=== PATIENT | male | born 1955 | race Caucasian/White ===

== ENCOUNTER 2019-11-14 13:22 | Emergency (ER) | payer SELFPAY ==
[2019-11-14 13:37] VITALS: TEMP 97.6
--- NOTE | 2019-11-14 13:45 | ED.PDOC ---
History of Present Illness - General Chief Complaint: Neuro Symptoms/Deficits Stated Complaint: right arm numbness Time Seen by Provider: 11/14/19 13:24 Source: patient Exam Limitations: no limitations - History of Present Illness Initial Comments: 64-year-old male presents to the emergency department complaining of right arm weakness from the elbow down onset 5 days ago. The patient reports that he woke up on Tuesday morning and was unable to move his right arm from the elbow down. He denies any numbness or tingling. He denies any trauma. The patient reports that he does occasionally drink but does not recall any significant alcohol intake prior to this happening. He denies any other numbness, weakness or tingling. Pain is rated 0/10 in severity. Allergies/Adverse Reactions: Allergies NO KNOWN ALLERGY Allergy (Verified 11/14/19 13:38) Review of Systems - Review of Systems Constitutional: Denies: chills, fever EENTM: Denies: nose congestion, throat pain Respiratory: Denies: cough, short of breath Cardiology: Denies: chest pain, palpitations Gastrointestinal/Abdominal: Denies: abdominal pain, nausea, vomiting Musculoskeletal: Denies: joint pain, muscle pain, neck pain Skin: Denies: lesions, rash Neurological: States: weakness - R Arm from the elbow down.. Denies: headache, numbness, paresthesia Past Medical History (General) - Patient Medical History Hx Stroke: No Hx Congestive Heart Failure: No Hx Diabetes: No - Vaccination History Hx Influenza Vaccination: No Hx Pneumococcal Vaccination: No - Social History Hx Tobacco Use: Yes Family Medical History - Family History Father Family History: Unknown Living Status: Unknown Physical Exam - Physical Exam General Appearance: Alert, No apparent distress, Well Developed, Well Nourished Eye Exam: bilateral normal Ears, Nose, Throat: normal ENT inspection, normal pharynx Neck: non-tender, full range of motion, supple, normal inspection Respiratory: lungs clear, normal breath sounds, no respiratory distress Cardiovascular/Chest: normal peripheral pulses, regular rate, rhythm Peripheral Pulses: radial,right: 2+, radial,left: 2+, dorsalis pedis,right: 2+, dorsalis pedis,left: 2+ Gastrointestinal/Abdominal: normal bowel sounds, non tender, soft Extremity: non-tender, normal inspection Neurologic: overnight stocker II-XII nml as tested, alert, normal mood/affect, oriented x 3, motor weakness - R arm He is able to move the shoulder and upper arm without difficulty however 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 Sensation is intact in the C6, 7 and 8 dermatomes bilaterally. Skin Exam: normal color, warm/dry Comments: Vital Signs - 24 hr 11/14/19 13:34 Temperature 97.6 F Pulse Rate [ 117 H Right Brachial] Respiratory 20 Rate Blood Pressure 138/109 [Right Arm] O2 Sat by Pulse 97 Oximetry Progress - Progress Progress: 11/14/19 14:00 I discussed with the patient need for evaluation with lab and imaging studies, he agrees with imaging studies at this time but is very concerned about cost. I informed him that unfortunately I am not aware of the cost of any of the imaging studies but that I will only order what I think is necessary based on his presentation. 11/14/19 14:17 Pt now c/o numbness to the R side of his face. Will order CT head. 11/14/19 15:20 CT and x-ray findings discussed with the patient along with recommendation of further evaluation with blood work and possible transfer for MRI and neurology evaluation. The patient is very hesitant because he is very concerned about cost and really does not want to go to any other hospital. I informed him that I would discuss the case with our on-call hospitalist and if they agree we could try to keep him here for further evaluation. The patient has ultimately voiced understanding and agrees with this plan. 11/14/19 15:25 I spoke with Josefina for the hospitalist service who will contact he r supervising physician and let me know weather we can keep the pt here or if they recommend transfer. 11/14/19 16:15 I spoke with Josefina who after speaking with her supervising physician requests that we obtain a tele-neurology consult and if they do not recommend any acute intervention for the patient then we can keep him here. 16:16 Patient was updated on this plan of action. 11/14/19 16:[address] [facility] presentation and CT findings. Will examine pt and call back with recommendations. 11/14/19 17:[address] Saab for tele-neurology she does not recommend any emergent intervention at this time and thinks that it would be appropriate for the patient to start the work-up here and if necessary depending on findings on the MRI he might need to be transferred later. I updated Josefina for the hospitalist service on this discussion along with the patient's lab results including a mildly elevated troponin at this time she recommends repeating the troponin level and if it does not elevate then she would agree with opting the patient here for stroke work-up. 11/14/19 18:24 Patient's repeat troponin is slightly more elevated than his previous at 0.1, this finding was discussed with Josefina for the hospitalist service who at this point recommends transfer for higher level of care. 11/14/19 18:30 Discussed with the patient lab abnormalities and discussions with hospitalist service and recommended transfer. He states that he does not want to be transferred at this time. We discussed that this could mean worsening of his condition and the possibility of elevated troponin meaning damage to the heart but he has voiced understanding and would like to go home. At this time he will be encouraged to sign out AGAINST MEDICAL ADVICE. he was encouraged to follow-up outpatient with the [facility] as soon as possible and to return to the emergency department for any concerns. - Results/Orders Results/Orders: 11/14/19 15:00 EKG STAT 11/14/19 15:20 IV Care:Saline Lock per [employer] QSHIFT Laboratory Results - last 24 hr 11/14/19 11/14/19 15:31 17:37 WBC 9.9 RBC 5.95 Hgb 17.9 Hct 51.9 MCV 87.2 MCH 30.1 MCHC 34.5 RDW 13.2 Plt Count 184 MPV 9.5 Absolute Neuts (auto) 7.50 H Absolute Lymphs (auto) 1.70 Absolute Monos (auto) 0.60 Absolute Eos (auto) 0.00 Absolute Basos (auto) 0.10 Neutrophils % 76.0 Lymphocytes % 16.6 L Monocytes % 6.1 Eosinophils % 0.4 L Basophils % 0.9 PT 10.3 INR 1.04 PTT (SP) 21.6 L Sodium 137 Potassium 4.1 Chloride 102 Carbon Dioxide 23 Anion Gap 16.1 BUN 20 H Creatinine 1.04 BUN/Creatinine Ratio 19.2 Random Glucose 337 H Serum Osmolality 289.7 Calcium 9.7 Magnesium 2.1 Creatine Kinase 151 CK-MB (CK-2) 3.1 CK-MB (CK-2) % Not Reportable Troponin I 0.09 H* 0.10 H* 1535: EKG interpreted by myself as sinus rhythm with sinus arrhythmia rate 90. Normal axis. Normal intervals. No ST elevation and nonspecific ST-T changes. CT cervical spine: IMPRESSION: C5-6 and C6-7 disc degeneration with spurring. See above. This exam was performed according to our departmental dose-optimization program, which includes automated exposure control, adjustment of the mA and/or kV according to patient size and/or use of iterative reconstruction technique. Total DLP equals 405.37 mGycm. Electronically signed by: Santosh Rico MD 11/14/2019 2:29 PM CDT Right shoulder x-ray: IMPRESSION: Negative for fracture or dislocation. Electronically signed by: Santosh Rico MD 11/14/2019 2:[address] head: IMPRESSION: 1. Age-appropriate atrophy with evidence of old small vessel ischemic type changes seen. 2. At least 2 focal areas of decreased attenuation from white matter to cortical surface seen in the distribution of the left MCA and AIRLINE MANAGER as described above. Differential includes 2 separate areas of subacute ischemia versus possible metastatic disease. Recommend further evaluation with pre and postcontrast MRI of the brain for better evaluation. Electronically signed by: Charlie Palmer MD 11/14/2019 2:38 PM CDT Departure - Departure Clinical Impression: Right arm weakness, Elevated troponin, Abnormal CT scan of head, Left against medical advice Time of Disposition: 18:30 Disposition: Left Against Medical Advice Condition: Fair Instructions: DI for Stroke-Ischemic Referrals: [facility] [Provider Group] - 1-2 Days Additional Instructions: Start taking an 81 mg aspirin daily. Follow-up with the [facility] to evaluate for possible outpatient testing and follow-up. Return to the emergency department for any worsening of symptoms or other concerns.
--- NOTE | 2019-11-14 14:30 | CT ---
EXAM DESCRIPTION: Cervical Spine CLINICAL HISTORY: R arm weakness COMPARISON: None Available. TECHNIQUE: Cervical CT is performed with thin-section axial imaging. MPRs are created and reviewed as well. FINDINGS: Axial bone window images reveal intact ring of C1. No abnormal widening of the atlantodens interval. No fracture of the vertebral bodies or transverse processes or posterior elements. Lung apices appear clear. No cervical mass or adenopathy. Sagittal reformatted images show normal alignment of vertebral bodies and facets. No jumped facet or facet fracture. Normal craniocervical alignment. No prevertebral soft tissue swelling. No avulsion of the spinous processes. Sagittal images show severe neural foraminal narrowing on the left at C7-T1. On the right, moderate to severe neural foraminal narrowing is seen at C3-4, C5-6, and C6-7 as well as T1-T2. Spondylosis: Advanced disc degeneration at C6-7 with posterior disc/osteophyte complex of moderate severity. MRI may be helpful to evaluate the disc bulges and spinal cord if the patient is an MRI candidate. Prominent anterior spurring at C6-7 and C5-6. Degenerative narrowing of the atlantodens interval with superior spurring. Coronal reformatted images show normal atlantooccipital and atlantoaxial alignment. The base of the dens is intact as is the body of C2. Intact lateral masses. IMPRESSION: C5-6 and C6-7 disc degeneration with spurring. See above. This exam was performed according to our departmental dose-optimization program, which includes automated exposure control, adjustment of the mA and/or kV according to patient size and/or use of iterative reconstruction technique. Total DLP equals 405.37 mGycm. Electronically signed by: Santosh Rico MD 11/14/2019 2:29 PM CDT
--- NOTE | 2019-11-14 14:31 | RAD ---
EXAM DESCRIPTION: Shoulder,Right 2 x-ray Views CLINICAL HISTORY: R arm weakness COMPARISON: None Available. TECHNIQUE: Two views of the right shoulder. FINDINGS: There is adequate internal and external rotation. There is no fracture or dislocation. Advanced degenerative narrowing of the AC joint with mild inferior spurring. Mild degenerative changes at the greater tuberosity of the proximal humerus. No focal bone lesion. IMPRESSION: Negative for fracture or dislocation. Electronically signed by: Santosh Rico MD 11/14/2019 2:30 PM CDT
--- NOTE | 2019-11-14 14:40 | CT ---
EXAM DESCRIPTION: Head CLINICAL HISTORY: facial numbness and arm weakness COMPARISON: None TECHNIQUE: Noncontrast transaxial CT images of the head are obtained from base to vertex. This exam was performed according to our departmental dose-optimization program, which includes automated exposure control, adjustment of the mA and/or kV according to patient size and/or use of iterative reconstruction technique. FINDINGS: The midline structures are not displaced. Sulci are age-appropriate. There are areas of decreased attenuation in the periventricular white matter and the white matter of the centrum semiovale. Decreased attenuation extending from the white matter to cortical surface in left posterior frontal lobe with mild effacement of gyri. Similar area of decreased attenuation extending from white matter to cortical surface in the left occipital lobe is seen. There is no evidence of mass, mass-effect, hydrocephalus, or acute intracranial hemorrhage. No abnormal extra axial fluid collection is seen. Calcifications of the intracranial arterial vasculature are seen. Bone windows show no evidence of depressed skull fracture. The visualized paranasal sinuses are unremarkable. IMPRESSION: 1. Age-appropriate atrophy with evidence of old small vessel ischemic type changes seen. 2. At least 2 focal areas of decreased attenuation from white matter to cortical surface seen in the distribution of the left MCA and BOAT CANVAS MAKER INSTALLER as described above. Differential includes 2 separate areas of subacute ischemia versus possible metastatic disease. Recommend further evaluation with pre and postcontrast MRI of the brain for better evaluation. Electronically signed by: Charlie Palmer MD 11/14/2019 2:38 PM CDT
[2019-11-14 17:28] VITALS: BP 134/97; O2SAT 94
[2019-11-14] MEDS ORDERED: ASPIRIN (CHEWABLE) 81 MG TAB PO ONE (18:23)
== END 2019-11-14 18:55 | disposition left against medical advice (07) ==
LOC: ER 13:22
DX: R29.898 Other symptoms and signs involving the musculoskeletal system (principal); R79.89 Other specified abnormal findings of blood chemistry; R93.0 Abnormal findings on diagnostic imaging of skull and head, not elsewhere classified; M50.323 Other cervical disc degeneration at C6-C7 level; Z53.29 Procedure and treatment not carried out because of patient's decision for other reasons; Z87.891 Personal history of nicotine dependence

== ENCOUNTER → 2020-01-08 | Outpatient (CLI) | payer OTHER ==
--- NOTE | 2020-01-09 12:29 | CT ---
Procedure: CT LUNG SCREENING Exam Date: January 08, 2020. Ordering Provider: Randy Ohara Clinical Indication: HX OF TOBACCO USE smoking cessation x7 weeks. 35 pack years. This patient meets eligibility criteria for low-dose CT lung cancer screening. Comparison: None. Technique: Using a multislice scanner, sequential helical axial imaging was obtained in the thorax, 2.5 mm thickness, 2.5 mm separation, from the level of the thoracic inlet through the lung bases without IV contrast. A low dose protocol was utilized for BMI less than 30: BMI: 28.5. CTDI: 1.76 mGy. 120. kVp. 45 mA. DLP 76 mGy-cm. 2D sagittal and coronal reconstructed images, 6.0 mm thickness, were obtained. This exam was performed according to our departmental dose optimization program which includes use of automated exposure control, adjustment of the mA and/or kV according to patient size and/or use of iterative reconstruction technique. Nodule measurements under 10 mm are given as mean value of 3 axes diameters. FINDINGS: Lungs and large airways: 5.1 mm solid subpleural nodule anterior superior right middle lobe on axial series 2, images 62 and 63. Focal 3 mm thickening of the superior medial left major fissure. Bilateral uniform parenchymal blebs more prevalent in the upper lung oliver. No other nodules and no abnormal nodules. No masses. No focal infiltrates. Pleura and space: Bilateral focal thickening but otherwise negative. Mediastinum and sancho: evaluation limited by low dose technique and lack of IV contrast. No enlarged nodes or dominant soft tissue masses. Heart and great vessels: Coronary artery calcifications. Atherosclerotic calcifications in the aorta. Chest wall, lower neck, axillae: Evaluation also limited by same factors as described above. Axillary lymph nodes are small. Upper abdomen: Evaluation limited by low-dose technique. No free fluid or free air. Normal size and density of the adrenal glands and spleen. Gallbladder visualized. Osseous structures: Evaluation limited by low dose MIP technique. Spondylosis in the thoracic spine. Dextroscoliosis upper spine. Minimal arthrosis in the shoulder and sternal joints. No blastic or lytic lesions. IMPRESSION: 1. Minimal emphysematous changes in the lungs. 5.1 mm solid subpleural nodule right middle lobe. No other significant lung findings.. [facility] Best Practice Recommendations: please see below for Lung RADS category and FOLLOW-UP.* *Lung RADS category CATEGORY 2- Nodules with a very low likelihood (less than 1%) of becoming a clinically active cancer due to size or lack of growth. Nodules: Perifissural nodule(s) < 10 mm. (526mm3). Solid or part solid nodule(s) less than 6mm (113.1 mm3), new solid nodule less than 4mm (33.5 mm3). Ground glass nodule(s) less than 30mm (01933.2 mm3) or unchanged or slow growing ground glass nodule 30mm or greater. Cat 3 or 4 nodule unchanged for 3 or more months. FOLLOW-UP: Continue annual screening with a Low Dose Chest CT in 12 months for re-evaluation. Electronically signed by: Sukumar Larry MD 01/09/2020 12:28 PM CDT
== END ==
LOC: CT 13:30
PROVIDERS: ATTEND Family Medicine
DX: Z87.891 Personal history of nicotine dependence (principal); J43.9 Emphysema, unspecified; R91.1 Solitary pulmonary nodule

== ENCOUNTER → 2020-01-23 | Outpatient (CLI) | payer SELFPAY | LOC: YCFC.O 12:14 | PROVIDERS: ATTEND Family Medicine | DX: I10 Essential (primary) hypertension (principal); M19.90 Unspecified osteoarthritis, unspecified site ==

== ENCOUNTER → 2020-03-03 | Outpatient (CLI) | payer SELFPAY | LOC: YCFC.O 10:07 | PROVIDERS: ATTEND Family Medicine | DX: I10 Essential (primary) hypertension (principal); E11.9 Type 2 diabetes mellitus without complications; R53.83 Other fatigue ==

== ENCOUNTER → 2020-06-04 | Outpatient (CLI) | payer SELFPAY | LOC: YCFC.O 10:53 | PROVIDERS: ATTEND Family Medicine | DX: E11.9 Type 2 diabetes mellitus without complications (principal) ==